=== PATIENT | male | born 1975 | race Asian ===

== ENCOUNTER 2021-04-21 14:15 | Emergency (ER) | payer BC ==
[~2021-04-21] VITALS: Ht 180.3 cm; Wt 88.5 kg
[2021-04-21 14:30] VITALS: BP 130/79; TEMP 97.5
== END 2021-04-21 16:45 | disposition home or self-care (01) ==
LOC: ED 14:15
DX: S16.1XXA Strain of muscle, fascia and tendon at neck level, initial encounter (principal); S39.012A Strain of muscle, fascia and tendon of lower back, initial encounter; V49.40XA Driver injured in collision with unspecified motor vehicles in traffic accident, initial encounter; Y92.89 Other specified places as the place of occurrence of the external cause
CPT/HCPCS: 99283

== ENCOUNTER 2023-04-30 12:05 | Outpatient (CLI) | payer BC ==
[2023-04-30 12:35] LABS: POTASSIUM 4.5 mmol/L (3.6-5.2)
== END 2023-04-30 18:56 | disposition home or self-care (01) ==
LOC: LABW 12:05
PROVIDERS: ATTEND Nurse Practitioner Family
DX: U07.1 COVID-19 (principal)
CPT/HCPCS: 36415; 80053